=== PATIENT | male | born 1985 | race Caucasian/White ===

== ENCOUNTER 2024-05-30 16:44 | Emergency (ER) | payer SELFPAY ==
[~2024-05-30] VITALS: Ht 188 cm; Wt 102.7 kg
[2024-05-30 16:49] VITALS: BP 153/90; PULSE 98; RESP 18; TEMP 98.3; O2SAT 97
[2024-05-30] MEDS: KETOROLAC 30 MG/ML VIAL IM ONE (17:36)
[2024-05-30] MEDS ORDERED: IBUP-2213 PO (18:49)
[2024-05-30 19:45] VITALS: BP 121/82; PULSE 79; RESP 16; TEMP 98.2; O2SAT 100
== END 2024-05-30 19:45 | disposition home or self-care (01) ==
LOC: MED 16:44
DX: S52.122A Displaced fracture of head of left radius, initial encounter for closed fracture (principal); S52.132A Displaced fracture of neck of left radius, initial encounter for closed fracture; Z79.899 Other long term (current) drug therapy; W18.39XA Other fall on same level, initial encounter; Y93.66 Activity, soccer; Y92.322 Soccer field as the place of occurrence of the external cause; Y99.8 Other external cause status
CPT/HCPCS: 29105; 73080; 96372; 99283; J1885; Q0092